=== PATIENT | male | born 1995 | race Two or more races ===

== ENCOUNTER 2025-06-03 00:46 | Emergency (ER) | payer OTHER ==
[~2025-06-03] VITALS: Ht 165.1 cm; Wt 68.0 kg
[2025-06-03] MEDS ORDERED: ORPHENADRINE CITRATE 30 MG/ML AMPUL IM STA (02:58)
[2025-06-03] MEDS ORDERED: KETOROLAC TROMETHAMINE 30 MG VIAL IV STA (02:58)
[2025-06-03] MEDS ORDERED: 0.9 % SODIUM CHLORIDE 1,000 ML IV ONE (03:00)
[2025-06-03 03:57] LABS: BASO % 1.2 % (0.1-1.2); EOS # 0.04 (0.04-0.54); EOS % 1.0 % (0.7-7.0); LYMPH # 1.83 (1.18-3.74); LYMPH % 43.8 % (19.3-53.1); MEAN PLATELET VOLUME 9.90 fl (9.4-12.4); MONO # 0.38 (0.24-0.82); MONO % 9.1 % (4.7-12.5); NEUT # 1.86 (1.56-6.13); NEUT % 44.4 % (34.0-71.1); RED CELL DISTRIBUTION WIDTH 12.6 % (11.6-14.4)
[2025-06-03] MEDS ORDERED: ORPHENADRINE CITRATE 30 MG/ML AMPUL IV STA (03:59)
[2025-06-03 05:18] LABS: BUN CREA RATIO 22.0 (7.0-25.0); CREATININE SERUM 0.73 mg/dL (0.70-1.30); GFR 125.32; GLUCOSE FASTING 103.0 mg/dL (65-100); OSMOLALITY SERUM 279.0 MOSM/KG (275-295)
[2025-06-03 05:19] LABS: BAND MAN 1.0 %; EOSINOPHIL MAN 1.0 %; LYMPHOCYTE MAN 17.0 %; MONOCYTE MAN 32.0 %; NEUTROPHILS MAN 43.0 %
[2025-06-03] MEDS ORDERED: ZOFRAN8 MG PO (06:40)
[2025-06-03] MEDS ORDERED: PEPCID40 MG PO (06:40)
== END 2025-06-03 06:49 ==
LOC: ER 00:46
PROVIDERS: General Practice
DX: E86.0 Dehydration (principal)